=== PATIENT | female | born 1995 | race Caucasian/White ===

== ENCOUNTER 2020-06-09 14:43 | Emergency (ER) | payer MEDICAID ==
[~2020-06-09] VITALS: Ht 170.2 cm; Wt 65.8 kg
[2020-06-09 14:50] VITALS: BP 139/92
--- NOTE | 2020-06-09 14:55 | NUR ---
Patient ambulated with steady gait to bed 7.
--- NOTE | 2020-06-09 15:10 | NUR ---
24 y/o F coming in from home with c/c vomiting, back pain, and loss of appetite x 1 week. Patient states she is 6 weeks and was seen at [facility], diagnosed with hyperemesis gravidarum and prescribed Vitamin B6 and another medication of unknown type. Patient states she has been having N/V x 5 episodes today; green/foamy, brown/liquidy between [id number]. Patient states associated loss of appetite, she is hungry however is unable to keep food down. Patient states she has been unable to take her vitamins due to this. Pt states associated right flank pain, rates it 7/10, sharp/constant, non-radiating; worsens with coughing. Pt states subrapubic tenderness, describes it cramping/inermittent 6/10. Pt states pain has been ongoing for 1 week. Last BM: today, normal; LMP: 04/25/20. G1 T0 L0. PMH: Gastritis Meds: Nexium Sx: Tonsillectomy NKA
--- NOTE | 2020-06-09 15:15 | NUR ---
Urine sample collected, walked to lab and handed to melody Cruz tech.
--- NOTE | 2020-06-09 15:18 | NUR ---
SAHARA Mae is evaluating patient at bedside.
[2020-06-09] MEDS: ACETAMINOPHEN 325 MG TAB PO ONE (15:28)
[2020-06-09] MEDS: NACL 0.9% 1,000 ML IV ONE (15:42)
[2020-06-09] MEDS: METOCLOPRAMIDE 10 MG/2 ML INJ VIAL IVP ONE (15:42)
--- NOTE | 2020-06-09 15:45 | NUR ---
Ultrasound at bedside.
[2020-06-09 15:46] LABS: BASOPHILS % (AUTO) 0.5 % (0.0-2.0); EOSINOPHILS % (AUTO) 0.4 % (0.0-4.0); HEMATOCRIT 38.4 % (36-48); HEMOGLOBIN 13.7 g/dL (12.0-16.0); LYMPHOCYTES # (AUTO) 1.6 K/uL (2.5-16.5); LYMPHOCYTES % (AUTO) 22.3 % (20.5-51.1); MEAN CORPUSCULAR HEMOGLOBIN 31 pg (27-31); MEAN CORPUSCULAR HGB CONC 36 g/dL (33-37); MEAN CORPUSCULAR VOLUME 87.1 fL (80-94); MONOCYTES # (AUTO) 0.5 K/uL (0.8-1.0); MONOCYTES % (AUTO) 6.9 % (1.7-9.3); NEUTROPHILS # (AUTO) 5.1 K/uL (1.8-7.7); NEUTROPHILS % (AUTO) 69.9 % (42.2-75.2); PLATELET COUNT (AUTO) 267 K/uL (140-450); RED BLOOD CELL COUNT(AUTO) 4.41 MIL/uL (4.20-5.40); RED CELL DISTRIBUTION WIDTH 12.5 % (11.6-13.7); WHITE BLOOD COUNT (AUTO) 7.3 K/uL (4.8-10.8)
--- NOTE | 2020-06-09 16:23 | NUR ---
Patient resting in semi-fowlers position; patient denies any pain and slight nausea at this time. States she feels a lot better after medication and IVF. satellite project site monitor in place. Respirations even/unlabored. Bed locked in lowest position, side rails x 1, call light in reach.
--- NOTE | 2020-06-09 16:32 | NUR ---
Received verbal consent to give status update to Ladi ([id number]).
--- NOTE | 2020-06-09 16:34 | NUR ---
Ladi ([id number]) [phone]
--- NOTE | 2020-06-09 16:34 | NUR ---
Spoke with Ladi via telephone and provided status update.
[2020-06-09] MEDS: ONDANSETRON 4 MG/2 ML VIAL IVP ONE (17:04)
[2020-06-09 17:44] LABS: ANION GAP 17.3 (8-16); CREATININE 0.8 mg/dL (0.6-1.3); POTASSIUM 3.3 mmol/L (3.5-5.1)
[2020-06-09 17:51] LABS: ALBUMIN 4.4 g/dL (3.4-5.0); TOTAL BILIRUBIN 0.8 mg/dL (0.0-1.0)
[2020-06-09] MEDS ORDERED: DOXY1TCP PO (18:02)
[2020-06-09] MEDS ORDERED: CEPH500T PO (18:02)
[2020-06-09] MEDS ORDERED: ACET-2619 PO (18:02)
[2020-06-09 18:10] VITALS: BP 113/73
--- NOTE | 2020-06-09 18:10 | NUR ---
IV removed, catheter intact and site benign. Applied folded 4x4 gauze and tape to stop bleeding.
--- NOTE | 2020-06-09 18:10 | NUR ---
Patient discharged with v/s stable. Written and verbal after care instructions given and explained. Patient alert, oriented and verbalized understanding of instructions. Ambulatory with steady gait. All questions addressed prior to discharge. ID band removed. Patient advised to follow up with PMD. Rx of Acetaminophen, Cephalexin, Doxylamine/Pyridoxine HCl sent to patient's preferred pharamcy. Patient educated on indication of medication including possible reaction and side effects. Opportunity to ask questions provided and answered.
[2020-06-09] MEDS: POTASSIUM CHLORIDE 10 MEQ TABER PO ONE (18:13)
== END 2020-06-09 18:10 | disposition home or self-care (01) ==
LOC: MED 14:43
DX: O23.41 Unspecified infection of urinary tract in pregnancy, first trimester (principal); O26.891 Other specified pregnancy related conditions, first trimester; R10.2 Pelvic and perineal pain; Z3A.01 Less than 8 weeks gestation of pregnancy; Z79.899 Other long term (current) drug therapy
CPT/HCPCS: 36415; 76801; 80053; 81002; 81025; 84702; 85025; 86900; 86901; 87086; 96361; 96374; 96375; 99284; J2405; J2765; J7030